=== PATIENT | male | born 1970 | race African-American/Black ===

== ENCOUNTER 2017-03-29 07:29 | Emergency (ER) | payer MEDICAID ==
[~2017-03-29] VITALS: Ht 177.8 cm; Wt 78.0 kg
[~2017-03-29 07:29] MED LIST: METO25TA6 PO
[2017-03-29] MEDS ORDERED: LISI-186 PO (07:35)
[2017-03-29 08:02] VITALS: BP 137/99
[2017-03-29 08:26] LABS: CLARITY URINE CLEAR (CLEAR); COLOR URINE YELLOW (YELLOW); GLUCOSE URINE NEGATIVE (NEGATIVE); KETONES URINE NEGATIVE (NEGATIVE); LEUKOCYTE ESTERASE URINE NEGATIVE (NEGATIVE); NITRITE URINE NEGATIVE (NEGATIVE); OCCULT BLOOD URINE NEGATIVE (NEGATIVE); PROTEIN URINE NEGATIVE (NEGATIVE); SPECIFIC GRAVITY URINE 1.009 (1.005-1.030); UROBILINOGEN URINE 0.2 E.U./dL (0.2-1.0)
[2017-03-29 08:37] LABS: BASOPHILS % 0.6 % (0.0-2.0); EOSINOPHILS % 0.4 % (0.0-5.0); HEMATOCRIT. 41.8 % (42.0-52.0); LYMPHOCYTES % 19.3 % (20.0-50.0); MEAN CORPUSCULAR HEMOGLOBIN 31.3 pg (28.0-32.0); MEAN CORPUSCULAR VOLUME 93.1 fL (80.0-94.0); MEAN PLATELET VOLUME 9.1 fl (7.4-10.4); MONOCYTES % 10.4 % (2.0-8.0); NEUTROPHILS % 69.3 % (40.0-76.0); PLATELET 179 x1000/uL (130-400); RED BLOOD CELL COUNT 4.49 mill/uL (4.7-6.1)
[2017-03-29 08:43] LABS: CHLORIDE 103 mEq/L (98-107)
[2017-03-29 08:57] LABS: CARBON DIOXIDE 30 mEq/L (21-32); ETHANOL BLOOD < 10 mg/dL
[2017-03-29 09:01] LABS: *AMPHETAMINES SCREEN URINE NEGATIVE (NEGATIVE); *BARBITURATES SCREEN URINE NEGATIVE (NEGATIVE); *BENZODIAZEPINES SCREEN URINE NEGATIVE (NEGATIVE); *COCAINE SCREEN URINE NEGATIVE (NEGATIVE); CANNABINOID URINE SCREEN NEGATIVE (NEGATIVE); METHADONE URINE SCREEN NEGATIVE (NEGATIVE); OPIATES URINE SCREEN NEGATIVE (NEGATIVE); PHENCYCLIDINE URINE SCREEN PRESUMTIVE POSITIVE (NEGATIVE)
== END 2017-03-29 09:54 | disposition left against medical advice (07) ==
LOC: ER 07:29
DX: F16.10 Hallucinogen abuse, uncomplicated (principal); R51 Headache; F12.10 Cannabis abuse, uncomplicated; K21.9 Gastro-esophageal reflux disease without esophagitis; I10 Essential (primary) hypertension; E78.00 Pure hypercholesterolemia, unspecified
CPT/HCPCS: 36415; 71010; 80053; 80305; 80307; 80329; 81003; 85025; 99285; G0482; Z7610

== ENCOUNTER 2017-05-31 01:12 | Emergency (ER) | payer MEDICAID ==
[~2017-05-31] VITALS: Ht 177.8 cm; Wt 84.0 kg
[~2017-05-31 01:12] MED LIST changes: +LISI-186 PO
[2017-05-31 01:19] VITALS: BP 135/90
== END 2017-05-31 01:34 | disposition left against medical advice (07) ==
LOC: ER 01:12
DX: R41.82 Altered mental status, unspecified (principal); Z53.21 Procedure and treatment not carried out due to patient leaving prior to being seen by health care provider

== ENCOUNTER 2018-03-10 22:02 | Emergency (ER) | payer MEDICAID ==
[~2018-03-10] VITALS: Ht 170.2 cm; Wt 73.0 kg
[2018-03-11] MEDS ORDERED: HYDROCODONE/ACETAMINOPHEN 5/325MG TABLET PO ONE (02:00)
[2018-03-11 03:22] VITALS: BP 155/78
== END 2018-03-11 03:22 | disposition home or self-care (01) ==
LOC: ER 22:02
DX: S62.611A Displaced fracture of proximal phalanx of left index finger, initial encounter for closed fracture (principal); I10 Essential (primary) hypertension; Z79.899 Other long term (current) drug therapy; Y08.89XA Assault by other specified means, initial encounter; Y92.89 Other specified places as the place of occurrence of the external cause; Y99.8 Other external cause status; Y93.89 Activity, other specified
CPT/HCPCS: 29130; 73130; 99284

== ENCOUNTER 2018-03-15 00:36 | Emergency (ER) | payer MEDICAID ==
[~2018-03-15] VITALS: Ht 170.2 cm; Wt 73.0 kg
[2018-03-15] MEDS ORDERED: MORPHINE SULFATE 4 MG/ML CPJ (NOT FOR IM USE) IV ONE (02:00)
[2018-03-15 02:25] LABS: HEMATOCRIT. 38.8 % (42.0-52.0); HEMOGLOBIN. 13.4 g/dL (14.0-18.0); MEAN CORPUSCULAR HEMOGLOBIN 31.9 pg (28.0-32.0); MEAN CORPUSCULAR VOLUME 92.4 fL (80.0-94.0); MEAN PLATELET VOLUME 9.8 fl (7.4-10.4); PLATELET 156 x1000/uL (130-400); RED CELL DISTRIBUTION WIDTH 13.5 % (11.6-14.6)
[2018-03-15 02:28] LABS: CHLORIDE 100 mEq/L (98-107)
[2018-03-15] MEDS ORDERED: ACETAMINOPHEN 325MG TABLET PO ONE (02:45)
[2018-03-15] MEDS: AMPICILLIN SOD/SULBACTAM NA 3 G in SODIUM CHLORIDE 0.9% 100 ML IV SCH ×2 (02:53→03:31)
[2018-03-15] MEDS ORDERED: SODIUM CHLORIDE 0.9% 1,000 ML IV ONE ×2 (05:15→06:15)
[2018-03-15 07:05] LABS: PLATELET ESTIMATE NORMAL
[2018-03-15 10:01] VITALS: BP 113/65
== END 2018-03-15 10:02 | disposition short-term general hospital (02) ==
LOC: ER 00:36
DX: L03.114 Cellulitis of left upper limb (principal); M65.9 Synovitis and tenosynovitis, unspecified
CPT/HCPCS: 36415; 80048; 85025; 87070; 87205; 96374; 96375; 99285; J0295; J2270; J7030; Z7610; 96365; 96376; J7050